=== PATIENT | female | born 2000 | race Caucasian/White ===

== ENCOUNTER 2018-08-03 01:14 | Emergency (ER) | payer MEDICAID ==
--- NOTE | 2018-08-03 01:21 | EDPHY ---
H & P Stated Complaint: THROAT SWELLING Time Seen by Provider: 08/03/18 01:21 HPI/ROS: HPI CHIEF COMPLAINT: Possible allergic reaction. HISTORY OF PRESENT ILLNESS: Very pleasant 18-year-old female, denies significant medical history presents emergency room stating that her throat mainly on the left side of her throat is very painful. She states that she recently went to urgent care earlier in the week for throat pain had a negative rapid strep but was placed on azithromycin. She was eating living cake approximately an hour ago and developed worsening left throat pain. She is concerned she may be having allergic reaction limited cake. She arrives to the emergency room without any distress. No shortness of breath no trouble swelling does have left lateral throat pain. On exam her tonsillar bed is erythematous bilaterally, there is exudate bilaterally, the soft palate and left tonsillar bed has some deep erythema raised bumps. No vesicles. Uvula midline. No significant swelling. Past Medical History: Includes but is not limited to in a particular order pharyngitis, viral pharyngitis, strep pharyngitis, tonsillitis, allergic reaction Past Surgical History: Denies recent surgery Social History: Denies drugs alcohol tobacco. Family History: Noncontributory ROS REVIEW OF SYSTEMS: 10 Systems were reviewed and negative with the exception of the elements mentioned in the history of present illness. Exam Constitutional triage nursing summary reviewed, vital signs reviewed, awake/ alert. Eyes normal conjunctivae and sclera, EOMI, PERRLA. HENT posterior pharynx uvula midline, no significant swelling, however erythematous tonsils bilaterally, mild exudate, no signs of [employer] RPA on exam, on the left palatal tonsillar bed and left soft palate there is deep erythema with some raised bumps. normal inspection, atraumatic, moist mucus membranes, no epistaxis, neck supple/ no meningismus, no raccoon eyes. Respiratory clear to auscultation bilaterally, normal breath sounds, no respiratory distress, no wheezing. Cardiovascular rate normal, regular rhythm, no murmur, no edema, distal pulses normal. Gastrointestinal soft, non-tender, no rebound, no guarding, normal bowel sounds, no distension, no pulsatile mass. Genitourinary no CVA tenderness. Musculoskeletal no midline vertebral tenderness, full range of motion, no calf swelling, no tenderness of extremities, no meningismus, good pulses, neurovascularly intact. Skin pink, warm, & dry, no rash, skin atraumatic. Neurologic awake, alert and oriented x 3, AAOx3, moves all 4 extremities equally, motor intact, sensory intact, CN II-XII intact, normal cerebellar, normal vision, normal speech. Psychiatric normal mood/affect. Heme/Lymph/Immune no lymphadenopathy. Differential Diagnosis: Includes but is not limited to in a particular order allergic reaction, viral syndrome or URI, viral pharyngitis, strep pharyngitis, mono Medical Decision Making: Plan for this patient will treat for allergic reaction with IV Benadryl IV Pepcid IV Solu-Medrol additionally will run rapid strep. Monitor closely for further progression of allergic reaction. Re-evaluation: Rapid strep a is positive. Augmentin dose ordered. 0417: Patient has a positive strep. Patient has had no progression of allergic reaction type symptoms. What I believe happened is that she ate a limited take the acidity from the Lemon Cake, caused irritation to the left posterior pharynx. Posterior pharynx is erythematous, no [employer]. No rash. She denies any trouble swallowing trouble breathing. Augmentin prescription provided 1st dose given in emergency room. She feels comfortable discharge planning Return precautions discussed she understands return emergency room develops worsening symptoms or not doing well this includes further allergic reaction type symptoms, or fever, worsening sore throat. Source: Patient - Personal History Current Tetanus Diphtheria and Acellular Pertussis (TDAP): Yes - Medical/Surgical History Hx Asthma: No Hx Chronic Respiratory Disease: No Hx Diabetes: No Hx Cardiac Disease: No Hx Renal Disease: No Hx Cirrhosis: No Hx Alcoholism: No Hx HIV/AIDS: No Hx Splenectomy or Spleen Trauma: No Other PMH: DENIES - Social History Smoking Status: Never smoked Constitutional: Initial Vital Signs Temperature (C) 36.7 C 08/03/18 01:16 Heart Rate 69 08/03/18 01:16 Respiratory Rate 20 08/03/18 01:16 Blood Pressure 134/85 H 08/03/18 01:16 O2 Sat (%) 98 08/03/18 01:16 O2 Delivery Mode Room Air Allergies/Adverse Reactions: No Known Allergies Allergy (Unverified 08/03/18 01:18) Home Medications: Medication Instructions Recorded Amoxicillin/Clavulanate Pot 875 mg PO BID #14 tab 08/03/18 [Augmentin 875 MG TAB (*)] Spironolactone 08/03/18 Medical Decision Making - Data Points Laboratory Results: 08/03/18 01:25 Group A Strep Screen POSITIVE H (NEGATIVE) Medications Given: Discontinued Medications Amoxicillin/Clavulanate Potassium (Augmentin 875mg) 875 mg PO EDNOW ONE PRN Reason: Protocol Stop: 08/03/18 02:37 Last Admin: 08/03/18 02:54 Dose: 875 mg Diphenhydramine HCl (Benadryl Injection) 25 mg IVP EDNOW ONE Stop: 08/03/18 01:26 Last Admin: 08/03/18 01:29 Dose: 25 mg Famotidine (Pepcid) 20 mg IVP EDNOW ONE Stop: 08/03/18 01:26 Last Admin: 08/03/18 01:29 Dose: 20 mg Methylprednisolone Sodium (Succinate 250 mg/ Dextrose) 50 mls @ 100 mls/hr IV ONCE ONE Stop: 08/03/18 01:54 Last Admin: 08/03/18 01:39 Dose: Not Given Methylprednisolone Sodium (Succinate 250 mg/ Dextrose) 50 mls @ 100 mls/hr IV ONCE ONE Stop: 08/03/18 01:56 Last Admin: 08/03/18 01:39 Dose: Not Given Methylprednisolone Sodium Succinate (Solu-Medrol) 125 mg IVP EDNOW ONE Stop: 08/03/18 01:30 Last Admin: 08/03/18 01:30 Dose: 125 mg Departure - Departure Disposition: Home, Routine, Self-Care Clinical Impression: Strep pharyngitis Condition: Good Instructions: Pharyngitis (ED), Strep Throat (ED) Additional Instructions: 1. Make sure to drink lots of fluids stay well-hydrated 2. Antibiotics as prescribed 3. Return emergency room if worsening symptoms. Referrals: NONE *PRIMARY CARE P,. [Primary Care Provider] - As per Instructions Bruno Esqueda MD [Medical Doctor] - As per Instructions Prescriptions: Amoxicillin/Clavulanate Pot [Augmentin 875 MG TAB (*)] 875 mg PO BID #14 tab
[2018-08-03] MEDS ORDERED: methylPREDNISolone SOD SUCC 250 MG in D5W 50 ML IV ONE ×2 (01:25→01:27)
[2018-08-03] MEDS ORDERED: FAMOTIDINE 20 MG/2 ML SDV IVP ONE (01:25)
[2018-08-03] MEDS ORDERED: methylPREDNISolone SOD SUCC 125 MG/2 ML VIAL IVP ONE (01:29)
[2018-08-03] MEDS ORDERED: AMOXICILLIN/CLAVULANATE POT 875/125 MG TAB PO ONE (02:36)
[2018-08-03 02:58] VITALS: BP 119/77
== END 2018-08-03 04:22 | disposition home or self-care (01) ==
DX: J02.0 Streptococcal pharyngitis (principal)
CPT/HCPCS: 96365; J1200; J2930

== ENCOUNTER 2018-10-05 17:31 | Emergency (ER) | payer MEDICAID ==
[2018-10-05] MEDS ORDERED: KETOROLAC 30 MG/1 ML SDV IVP ONE (17:52)
[2018-10-05] MEDS ORDERED: NS 1,000 ML IV ONE (17:52)
[2018-10-05] MEDS ORDERED: DEXAMETHASONE 10 MG/ML VIAL IVP ONE (17:52)
--- NOTE | 2018-10-05 17:57 | EDPHY ---
H & P Time Seen by Provider: 10/05/18 17:42 HPI/ROS: HPI Sore throat. 18-year-old female by private vehicle. This patient complains of a sore throat ongoing and worsening for 6 days. She reports it is difficult to swallow. She reports that she feels as if her tonsils are swollen. She has a history of multiple episodes of strep throat. She was last seen in our emergency department and mid August was diagnosed with strep throat at that time. She denies fever. She has not had voice changes. She reports that night she feels it is slightly more difficult to breathe when she is laying supine. ROS: Constitutional: No fever, no chills. No weakness. Eyes: No discharge. No changes in vision. ENT: As above. No nasal congestion or rhinorrhea. Respiratory: No cough. As above. Cardiac: No chest pain, no palpitations. Gastrointestinal: No abdominal pain, no vomiting, no diarrhea. Musculoskeletal: No myalgias or arthralgias. Skin: No rashes. Neurological: No headache. No focal weakness or altered sensation. Past medical history: Multiple episodes of strep throat in the past. Social history: Student [employer]. No alcohol. Nonsmoker. Physical Exam: General Appearance: Alert, no distress. This patient is responding to questions appropriately and in full sentences. This patient appears well- hydrated and well-nourished. Eyes: Pupils equal and round no pallor or injection. No lid edema, erythema or injection. ENT, Mouth: Mucous membranes are moist. She has diffuse and mild pharyngeal erythema. Her right tonsil is slightly asymmetric and enlarged compared to the left tonsil. No significant asymmetry suggestive of abscess. No exudate. No voice changes. No stridor on auscultation of her neck. She does not have any significant cervical, submental, submandibular lymphadenopathy. Respiratory: There are no retractions, lungs are clear to auscultation with good air movement bilaterally. Cardiovascular: Regular rate and rhythm. No murmur. Neurological: Motor sensory function is grossly intact. Cranial nerves are normal. Gait is normal. Skin: Warm and dry, no rashes. Musculoskeletal: Neck is supple and nontender. No pain on flexion of her neck. The soft tissues of the neck are nontender on palpation. Extremities are symmetrical. All joints range without pain or impingement. Psychiatric: No agitation. No depression. Database: EKG: Imaging: Soft tissue neck x-ray series: Negative. Report by Dr. Nick Worthington reviewed. Procedures: Emergency department course: Triage vital signs reviewed and are normal. An IV was placed. She was started on IV normal saline with 500 cc to 1 L to be given over the next hour. Strep and mono testing sent. She has no contraindications to NSAIDs. No history of renal dysfunction or peptic ulcer disease. She will be given a 1 time dose of Toradol 30 mg and 10 mg of Decadron. Soft tissue neck x-rays also to be obtained. Rapid strep and mono testing negative. 6:35 p.m., the patient was re-evaluated, resting comfortably at this time. She feels better. Repeat pharyngeal exam is unremarkable. No stridor. Her upper airway is clear on auscultation. She feels comfortable going home at this time and I feel she is safe for discharge. I explained that she can start taking ibuprofen tomorrow. I discussed dosing. I will refer her to ENT for re- evaluation this week. She is in agreement with this plan. She feels comfortable going home. Return to emergency department precautions have been thoroughly reviewed with her. All of her questions were answered. She was discharged home in good condition. Differential Diagnosis: The differential diagnosis on this patient includes but is not limited to viral pharyngitis, mononucleosis, streptococcal pharyngitis. Peritonsillar abscess, retropharyngeal abscess, tracheitis, epiglottitis unlikely. This represents a partial list of diagnoses considered. These considerations are based on history , physical exam, past history, reassessment and diagnostic testing. Smoking Status: Never smoked Constitutional: Initial Vital Signs Temperature (C) 36.9 C 10/05/18 17:36 Heart Rate 60 10/05/18 17:36 Respiratory Rate 16 10/05/18 17:36 Blood Pressure 111/68 10/05/18 17:36 O2 Sat (%) 95 10/05/18 17:36 O2 Delivery Mode Room Air Allergies/Adverse Reactions: No Known Allergies Allergy (Verified 10/05/18 17:35) Home Medications: Medication Instructions Recorded Spironolactone 08/03/18 Radha 28 Tablet 10/05/18 Medical Decision Making - Diagnostics Imaging Results: Imaging Impressions Soft Tissue Neck X-Ray 10/05/18 17:53 Impression: 1. Negative soft tissue neck radiographs. - Data Points Laboratory Results: 10/05/18 10/05/18 10/05/18 Unknown 18:00 17:50 Monoscreen NEGATIVE (NEGATIVE) Group A Strep Screen NEGATIVE (NEGATIVE) Group A Strep DNA Pending Medications Given: Discontinued Medications Dexamethasone (Decadron Injection) 10 mg IVP EDNOW ONE Stop: 10/05/18 17:53 Last Admin: 10/05/18 18:06 Dose: 10 mg Sodium Chloride (Ns) 1,000 mls @ 0 mls/hr IV ONCE ONE; Wide Open PRN Reason: Protocol Stop: 10/05/18 17:53 Last Admin: 10/05/18 18:06 Dose: 1,000 mls Ketorolac Tromethamine (Toradol) 30 mg IVP EDNOW ONE Stop: 10/05/18 17:53 Last Admin: 10/05/18 18:06 Dose: 30 mg Departure - Departure Disposition: Home, Routine, Self-Care Clinical Impression: Acute pharyngitis Condition: Good Instructions: Pharyngitis (ED) Additional Instructions: Read and follow provided instructions. Follow-up with Dr. Bruno Esqueda or 1 of his partners with [facility] this week for re-evaluation and further management. Call their office on Saturday morning for appointment time. Explained this is for an emergency department follow-up. You can start taking ibuprofen tomorrow. Ibuprofen dosin mg every 6 hours with meals for the next 3 days only. Take only as needed for pain. Return to the emergency department for worsening pain, any difficulty breathing , voice changes or other serious concerns. Referrals: Bruno Esqueda MD [Medical Doctor] - As per Instructions
[2018-10-05 18:49] VITALS: BP 113/61
== END 2018-10-05 18:49 | disposition home or self-care (01) ==
DX: J02.9 Acute pharyngitis, unspecified (principal); E86.9 Volume depletion, unspecified
CPT/HCPCS: 96374; J1100; J1885